=== PATIENT | female | born 1995 | race Two or more races ===

== ENCOUNTER 2023-02-21 15:28 | Emergency (ER) | payer OTHER ==
[~2023-02-21] VITALS: Ht 172.7 cm; Wt 79.1 kg
[2023-02-21 15:34] VITALS: BP 142/83
== END 2023-02-21 15:46 | disposition short-term general hospital (02) ==
LOC: ER 15:28
DX: O26.893 Other specified pregnancy related conditions, third trimester (principal); O24.419 Gestational diabetes mellitus in pregnancy, unspecified control; R10.2 Pelvic and perineal pain; Z3A.34 34 weeks gestation of pregnancy
CPT/HCPCS: 82962

== ENCOUNTER 2023-02-21 15:58 | Observation (INO) | payer OTHER ==
[~2023-02-21] VITALS: Ht 172.7 cm; Wt 81.6 kg
[2023-02-21] MEDS ORDERED: LACTATED RINGER'S 1,000 ML IV ONE (16:30)
[2023-02-21] MEDS ORDERED: ceFAZolin 1GM/50ML 50 ML IV ONE (16:30)
[2023-02-21 16:59] LABS: Urine Bacteria FEW /hpf (None Seen); Urine Blood Negative /uL (Negative); Urine Mucus FEW (None Seen); Urine Specific Gravity 1.024 (1.001-1.035); Urine WBC 8 /hpf (0 - 5)
[2023-02-21 17:34] LABS: Alcohol, Urine < 3.0 mg/dL (0-10); Amphetamine Screen, Urine NEGATIVE (NEGATIVE); Barbiturate Scree,Urine NEGATIVE (NEGATIVE); Benzodiazephine Screen, Urine NEGATIVE (NEGATIVE); Cocaine Screen, Urine NEGATIVE (NEGATIVE)
[2023-02-21 17:42] LABS: Cannabinoid Screen, Urine POSITIVE (NEGATIVE); Opiate Scree,Urine NEGATIVE (NEGATIVE); Phencyclidine Screen, Urine NEGATIVE (NEGATIVE)
== END 2023-02-21 19:12 | disposition home or self-care (01) ==
LOC: UNDOADMOB 15:58 → LDRP 15:58 → UNDODISOB 19:12
PROVIDERS: ADMIT Obstetrics & Gynecology; ATTEND Obstetrics & Gynecology
DX: O26.893 Other specified pregnancy related conditions, third trimester (principal); R10.30 Lower abdominal pain, unspecified; N89.8 Other specified noninflammatory disorders of vagina; R51.9 Headache, unspecified; O21.2 Late vomiting of pregnancy; Z3A.34 34 weeks gestation of pregnancy; Z79.899 Other long term (current) drug therapy
CPT/HCPCS: 59025; 76805; 80307; 81001; 81002; 82948; 94760; 96361; 96365; G0378; J0690; 96360